=== PATIENT | female | born 1950 | race Caucasian/White ===

== ENCOUNTER → 2017-01-18 | Outpatient (CLI) | payer BC ==
[~2017-01-18] MED LIST: LEVO100T84 PO
--- NOTE | 2017-01-18 12:25 | DIAGNOSTIC IMAGING REPORT ---
RIBS BILATERAL WITH PA CHEST CLINICAL HISTORY: OTHER CHEST PAIN pain COMPARISON STUDY: None FINDINGS: Nondisplaced cortical fractures anterior right ninth and 10th ribs. Nondisplaced cortical fracture anterior left 10th rib. All remaining ribs are unremarkable. No evidence pneumothorax. Lungs are clear. IMPRESSION: 1. Nondisplaced cortical fracture left 10th rib. 2. Nondisplaced cortical fractures anterior right ninth and 10th ribs. 3. Lungs are clear. 4. No evidence pneumothorax. Electronically signed by: Roger Lomeli M.D. 01/18/2017 12:23 PM Dictated Date/Time: 01/18/2017 12:20 PM
== END | disposition home or self-care (01) ==
LOC: C.RAD1850 12:02
PROVIDERS: ATTEND Family Medicine
DX: S22.32XA Fracture of one rib, left side, initial encounter for closed fracture (principal); S22.41XA Multiple fractures of ribs, right side, initial encounter for closed fracture; W19.XXXA Unspecified fall, initial encounter

== ENCOUNTER → 2017-04-03 | Outpatient (CLI) | payer OTHER, BC ==
--- NOTE | 2017-04-03 13:42 | MAMMOGRAPHY REPORT ---
BILATERAL DIGITAL SCREENING MAMMOGRAM TOMOSYNTHESIS WITH CAD: 04/03/2017 CLINICAL HISTORY: Routine screening. Patient has no complaints. TECHNIQUE: Breast tomosynthesis in addition to standard 2D mammography was performed. 2-D repeat le ft MLO and right CC view with the nipple in profile were obtained. Current study was also evaluated with a Computer Aided Detection (CAD) system. COMPARISON: Comparison is made to exams dated: 04/02/2016 mammogram, 03/29/2015 mammogram, 03/26/2014 ma mmogram, 03/25/2013 mammogram, 03/26/2012 mammogram, and 03/24/2012 mammogram - [facility] nter. BREAST COMPOSITION: There are scattered areas of fibroglandular density in both breasts. FINDINGS: No suspicious mass, architectural distortion or cluster of microcalcifications is seen. IMPRESSION: ACR BI-RADS CATEGORY 1: NEGATIVE There is no mammographic evidence of malignancy. A 1 year screening mammogram is recommended. The pa tient will receive written notification of the results. Approximately 10% of breast cancers are not detected with mammography. A negative mammographic report should not delay biopsy if a clinically suggestive mass is present. Tonie Josue M.D. ay/:04/03/2017 08:44:51 Sewing Supervisor: Elham MEDINA(Nia)(Noemy)(BD), [facility] letter sent: Normal 1/2 BI-RADS Code: ACR BI-RADS Category 1: Negative
== END | disposition home or self-care (01) ==
LOC: C.MAMM 08:16
PROVIDERS: ATTEND Family Medicine
DX: Z12.31 Encounter for screening mammogram for malignant neoplasm of breast (principal)

== ENCOUNTER → 2018-04-08 | Outpatient (CLI) | payer OTHER, BC ==
--- NOTE | 2018-04-09 13:39 | MAMMOGRAPHY REPORT ---
BILATERAL DIGITAL SCREENING MAMMOGRAM TOMOSYNTHESIS WITH CAD: 04/08/2018 CLINICAL HISTORY: Routine screening. Patient has no complaints. TECHNIQUE: The study was acquired using full field digital technology and interpreted from soft copy. Breast tomosynthesis in addition to standard 2D mammography was performed. Current study was also ev aluated with a Computer Aided Detection (CAD) system. COMPARISON: Comparison is made to exams dated: 04/03/2017 mammogram, 04/02/2016 mammogram, 03/29/2015 gwen mogram, 03/26/2014 mammogram, 03/25/2013 mammogram, and 03/26/2012 mammogram - [facility]. BREAST COMPOSITION: There are scattered areas of fibroglandular density in both breasts. FINDINGS: There is minimal vascular calcification in the breasts. No suspicious mass, architectural distortion or cluster of microcalcifications is seen. IMPRESSION: ACR BI-RADS CATEGORY 1: NEGATIVE There is no mammographic evidence of malignancy. A 1 year screening mammogram is recommended.( [id number]) The patient will receive written notification of the results. Some breast cancers are not detected with mammography. A negative mammographic report should not real y biopsy if a clinically suggestive mass is present. Tonie Josue M.D. ay/:04/08/2018 17:14:51 Tipple Oiler: RT Dominic(Nia)(M), [facility] letter sent: Normal 1/2 BI-RADS Code: ACR BI-RADS Category 1: Negative
== END | disposition home or self-care (01) ==
LOC: C.MAMM 08:07
PROVIDERS: ATTEND Family Medicine
DX: Z12.31 Encounter for screening mammogram for malignant neoplasm of breast (principal)